=== PATIENT | female | born 1940 | race Caucasian/White ===

== ENCOUNTER 2020-12-29 14:10 | Outpatient (CLI) | payer MEDICARE, SELFPAY ==
--- NOTE | 2020-12-29 14:24 | MM_ITS ---
WS: [id number] BILATERAL DIGITAL SCREENING MAMMOGRAPHY WITH CAD CLINICAL INFORMATION: SCREENING HISTORY: Screening mammogram. No current complaints. COMPARISON: None. TECHNIQUE: Bilateral CC and MLO views. FINDINGS: Scattered fibroglandular densities bilaterally. A few incidental intramammary lymph nodes. Vascular c alcification. Indeterminate ovoid nodule inferior medial left breast measuring 11 mm with partially o bscured margins. Recommend left diagnostic mammography and ultrasound for further evaluation. Right breast is unremarkable. MM/[place] [id number] IMPRESSION: BI-RADS: 0-Incomplete: Need additional imaging evaluation FOLLOW UP: Need Additional Imaging Recommend left diagnostic mammography and ultrasound for further evaluation.
== END 2020-12-29 14:11 | disposition home or self-care (01) ==
LOC: RADSHAW 14:17
PROVIDERS: Family Provider Family Medicine; PCP Family Medicine; Visit Provider Family Medicine
DX: Z12.31 Encounter for screening mammogram for malignant neoplasm of breast (principal)
CPT/HCPCS: 77067

== ENCOUNTER 2021-01-25 09:36 | Outpatient (CLI) | payer MEDICARE, OTHER, SELFPAY ==
--- NOTE | 2021-01-25 09:41 | US_ITS ---
WS: [id number] LEFT DIGITAL DIAGNOSTIC MAMMOGRAM MAMMOGRAPHY WITH CAD CLINICAL INFORMATION: ABNORMAL MAMMOGRAM COMPARISON: December 29, 2020 TECHNIQUE: Left CC, MLO, and ML views. FINDINGS: Left breast composed of scattered fibroglandular densities. Stable 11 mm ovoid nodule inferior medial left breast is unchanged.. Ultrasound is pending. ULTRASOUND BREAST LEFT TECHNIQUE: Ultrasound left breast focused area of concern. CLINICAL INFORMATION: ABNORMAL MAMMOGRAM COMPARISON: None. FINDINGS: Ultrasound left breast at the 7:00 position. Solid hypoechoic well-circumscribed lesion at the 7:00 p osition 2 cm from the nipple with associated vascularity. This measures 1.0 x 0.8 x 0.9 CM and is non specific with a suspicious appearance. Recommend further evaluation with ultrasound-guided biopsy. US/US breast LT limited* [id number] IMPRESSION: BI-RADS: 4-Suspicious Finding-Biopsy Should Be Considered FOLLOW UP: US Guided Biopsy Recommended
== END 2021-01-25 09:37 | disposition home or self-care (01) ==
LOC: RADSHAW 09:39
PROVIDERS: Family Provider Family Medicine; PCP Family Medicine; Visit Provider Family Medicine
DX: R92.8 Other abnormal and inconclusive findings on diagnostic imaging of breast (principal); N63.24 Unspecified lump in the left breast, lower inner quadrant
CPT/HCPCS: 76642; 77065

== ENCOUNTER 2021-06-17 09:50 | Outpatient (CLI) | payer MEDICARE, OTHER, SELFPAY ==
--- NOTE | 2021-06-17 10:02 | XR_ITS ---
WS: [id number] Left shoulder, 4 views, 06/17/2021 Clinical Data: L SHOULDER PAIN Comparison: None. Findings: There is a fracture at the left humeral neck with slight impaction. There is displacement of the alana ral head inferiorly probably from blood. The clavicle, scapula and adjacent ribs are normal. XR/XR shoulder LT min 2V* [id number] Impression: 1. Fracture of the left humeral neck with impaction. 2. The doctor's office was notified at 1030 hours.
== END 2021-06-17 09:51 | disposition home or self-care (01) ==
PROVIDERS: PCP Family Medicine; Visit Provider Family Medicine
DX: S42.212A Unspecified displaced fracture of surgical neck of left humerus, initial encounter for closed fracture (principal); X58.XXXA Exposure to other specified factors, initial encounter
CPT/HCPCS: 73030

== ENCOUNTER 2023-04-14 09:47 | Emergency (ER) | payer MEDICARE, OTHER, SELFPAY ==
[2023-04-14 09:55] VITALS: BP 214/101; PULSE 73; RESP 18; TEMP 36.6; O2SAT 95
[2023-04-14 10:02] VITALS: BP 191/91; PULSE 76; RESP 18; O2SAT 96
--- NOTE | 2023-04-14 10:06 | ECG_ITS ---
[facility] Test Date: 2023-04-14 Pat Name: Santa Beard Department: Room: Gender: Female [employer]: : 1940 Requested By: Aziza Velazquez Order Number: [id number] Julia MD: Milind Sosa M.D. Measurements Intervals [place] Rate: 70 P: 118 MT: 239 QRS: 216 QRSD: 90 T: 166 QT: 406 QTc: 441 Interpretive Statements SINUS RHYTHM WITH FIRST DEGREE AV BLOCK WITH OCCASIONAL VENTRICULAR PREMATURE COMPLEXES ARM LEADS REVERSED [INVERTED P AND QRS IN I] No previous ECG available for comparison Electronically Signed On 04-15-2023 9:40:37 CDT by Milind Sosa M.D. [id number]
--- NOTE | 2023-04-14 10:07 | XR_ITS ---
WS: [id number] Portable AP upright chest, 04/14/2023 Clinical Data: elevated BP Comparison: None. Findings: No nodules, masses or effusions are seen. The heart is enlarged. The pulmonary vascularity is not increased. No pneumonia or pneumothorax is seen. The aortic arch and descending thoracic aorta show calcification and tortuosity. Monitor leads are on the chest wall. There is an old fracture of the left humeral head and neck. Impression: Cardiomegaly and atherosclerosis.
--- NOTE | 2023-04-14 10:09 | CT_ITS ---
WS: [id number] CT HEAD NONCONTRAST HISTORY: dizzy TECHNIQUE: Contiguous axial imaging performed through the brain in 2.5 mm imaging. Bone and soft tiss ue windows. Sagittal and coronal reformats reviewed. All CT scans at [facility] use at least one of these dose optimization techniques: automated exposure control; mA and/or kV adjustment per pa tient size (includes targeted exams where dose is matched to clinical indication); or iterative recon struction. DLP: 1031.68 mGy.cm COMPARISON: None available. No acute intracranial hemorrhage, midline shift or mass effect. Mild atrophy is symmetric. There is several lacunar infarcts within the basal ganglia noted bilateral ly. No large territory infarct. Ventricles: Normal size with no hydrocephalus. No inferior displacement of the cerebellar tonsils. Paranasal sinuses: As visualized are clear. Mastoid air cells: Well pneumatized. Calvarium and scalp: Skull is intact with no soft tissue edema or swelling. IMPRESSION: 1. No acute intracranial hemorrhage or edema. 2. Mild atrophy with several small bilateral lacunar infarcts in the basal ganglia.
--- NOTE | 2023-04-14 10:35 | ED_ITS ---
HPI - General Adult General: Chief complaint: General Medical Stated complaint: weakness Time Seen by Provider: 04/14/23 09:49 Source: patient Mode of arrival: ambulatory Limitations: no limitations History of Present Illness: Patient presents to the emergency department today for evaluation treatment of general ill feeling and weakness. Patient notes that for the last 3 days she has had increasing weakness. She reports a couple days ago having a large bout of vomiting and since then, has only had dry heaving. She did have some toast with butter this morning was able to tolerate it. She has been tolerating her fluids-per her report. She admits to abdominal pain only when she vomits. No diarrhea. Patient also indicates dizziness during this time. She states she has been told she has inner ear issues but feels this is somewhat different. She denies chest pains or shortness of breath. She denies any recent illness or fevers. She denies back pain or dysuria. Patient denies any significant past medical history. She states she has not been to a doctor in quite some time. She takes no chronic medications. Review of Systems General: Reports: 10 or more systems reviewed and unremarkable except in HPI and below Physical Exam Const: COMMON NORMALS: no acute distress, average body habitus, patient oriented x3, healthy appearing and alert HENMT: COMMON NORMALS: normocephalic, atraumatic, hearing grossly normal bilaterally, external ears normal, Normal nasal mucous membranes and turbinates present and moist oral mucous membranes HEAD & SCALP: normocephalic and atraumatic NOSE: Normal nasal mucous membranes and turbinates present EXTERNAL EAR: Yes external ears normal Neck/C-Spine: COMMON NORMALS: full ROM Resp: COMMON NORMALS: normal respiratory effort, No retractions, No use of accessory muscles and clear to auscultation bilaterally AUSCULTATION: clear to auscultation bilaterally Cardio: COMMON NORMALS: regular rate and regular rhythm RATE: regular rate RHYTHM: regular rhythm GI: COMMON NORMALS: Normal to inspection, nondistended, normoactive bowel sounds present, Soft to palpation and non-tender PALPATION: Yes Soft to p alpation : COMMON NORMALS: Yes no CVA tenderness BLADDER/KIDNEY EXAM: Yes no CVA tenderness Back/Pelvis: COMMON NORMALS: no CVA tenderness, no thoracic nor lumbar tenderness and thoraco-lumbar ROM normal Extremity: COMMON NORMALS: normal to inspection and full ROM Neuro: COMMON NORMALS: patient oriented x3 SENSORIUM/ORIENTATION: Yes alert Psych: COMMON NORMALS: mental status grossly normal, Normal thought process present, cooperative and speech normal SPEECH: Yes normal speech THOUGHT PROCESS: Normal thought process present Skin: NARRATIVE SKIN EXAM: Patient has no signs of pitting edema in the lower extremities bilaterally Course Vital Signs: Vital signs: Vital Signs Temperature 97.8 F 04/14/23 09:55 Pulse Rate 74 04/14/23 14:00 Respiratory Rate 16 04/14/23 14:00 Blood Pressure 184/89 04/14/23 14:00 Pulse Oximetry 98 04/14/23 13:22 Oxygen Delivery Me thod Room Air 04/14/23 13:22 MDM - General Adult Medical Decision Making Patient's lab work is generally unremarkable. She has no signs of an elevated white blood cell count or anemia. Kidney function is within normal limits. Chest x-ray indicated cardiomegaly without vascular congestion so we did add a BNP. Patient's baseline troponin was 17 but, had no significant changes at 2 hours. BNP is somewhat elevated at 632. Patient's blood pressure did fluctuate quite a bit here in the emergency department. Patient had systolic readings in the 150s up to 190s. I discussed the case at length with Dr. Gonzales and together decided a 3-day course of Lasix would be appropriate to treat not only blood pressure but, also help with the findings of slightly elevated BNP today. Patient was given a referral for follow-up with primary care to discuss new findings of elevated blood pressure readings and cardiomegaly. However, patient indicates she has a primary care she would like to see and family offered to try and see if they can get an appointment as well. Either way, patient needs follow-up and they understand. Patient was given strict return precautions for change in her condition including bilateral lower extremity edema, shortness of breath, nonproductive cough, or any chest pains. If these occur she needs to be seen and reevaluated here in the emergency department. We also went over blood pressure readings and how to make a log at home for her new primary care doctor to see. Differential Diagnosis DDX: Anemia, UTI, urosepsis, pneumonia, vertigo, stroke, dehydration Lab Data 04/14/23 10:14 04/14/23 10:14 Laboratory Results WBC 5.90 10^3/uL (3.29-11.43) 04/14/23 10:14 RBC 4.89 10^6/uL (3.85-5.65) 04/14/23 10:14 Hgb 14.30 g/dL (11.27-16.99) 04/14/23 10:14 Hct 44.8 % (36-47) 04/14/23 10:14 MCV 91.6 fl (85-98) 04/14/23 10:14 MCH 29.2 pg (27-33) 04/14/23 10:14 MCHC 31.9 g/dL (30-55) 04/14/23 10:14 RDW 13.2 % (12.1-15.1) 04/14/23 10:14 Plt Count 258 10^3/cmm (157-399) 04/14/23 10:14 MPV 10.2 fL (7.4-10.4) 04/14/23 10:14 Neut % (Auto) 66.6 % 04/14/23 10:14 Lymph % (Auto) 22.2 % 04/14/23 10:14 [place] % (Auto) 7.6 % 04/14/23 10:14 Eos % (Auto) 3.1 % 04/14/23 10:14 Baso % (Auto) 0.2 % 04/14/23 10:14 Neut # (Auto) 3.93 10^3/uL (1.8-7.7) 04/14/23 10:14 Lymph # (Auto) 1.3 10^3/uL (0.8-4.8) 04/14/23 10:14 [place] # (Auto) 0.5 10^3/uL (0.2-0.9) 04/14/23 10:14 Eos # (Auto) 0.2 10^3/uL (0.0-0.8) 04/14/23 10:14 Baso # (Auto) 0.0 10^3/uL (0.0-0.1) 04/14/23 10:14 Nucleated RBC % (auto) 0 % 04/14/23 10:14 Nucleated RBCs # 0.0 /100WBC 04/14/23 10:14 Sodium 139 mmol/L (136-145) 04/14/23 10:14 Potassium 4.2 mmol/L (3.5-5.1) 04/14/23 10:14 Chloride 103 mmol/L (98-107) 04/14/23 10:14 Carbon Dioxide 27 mmol/L (22-29) 04/14/23 10:14 Anion Gap 13.2 (5-19) 04/14/23 10:14 BUN 14 mg/dL (8-23) 04/14/23 10:14 Creatinine 0.8 mg/dL (0.5-0.9) 04/14/23 10:14 GFR Calculation Not Reportable 04/14/23 10:14 Glucose 101 mg/dL (65-115) 04/14/23 10:14 Calculated Osmolality 289 mOsm/kg (285-295) 04/14/23 10:14 Calcium 9.6 mg/dL (8.5-10.5) 04/14/23 10:14 Total Bilirubin 0.4 mg/dL (0.15-1.2) 04/14/23 10:14 AST 15 U/L (0-32) 04/14/23 10:14 ALT 10 U/L (0-33) 04/14/23 10:14 Alkaline Phosphatase 68 U/L (35-105) 04/14/23 10:14 Troponin T Baseline 17 ng/L (0-10) H 04/14/23 10:14 Troponin T 120 Minute 16.60 ng/L (0-10) H 04/14/23 12:01 Delta Troponin T -0.40 ABS# (0-10) L 04/14/23 12:01 NT-Pro-B Natriuret Pep 632 pg/mL (0-450) H 04/14/23 10:14 Total Protein 7.7 g/dL (6.6-8.7) 04/14/23 10:14 Albumin 4.1 g/dL (3.5-5.2) 04/14/23 10:14 Globulin 3.6 g/dL (1.3-4.6) 04/14/23 10:14 Urine Color Yellow (Yellow) 04/14/23 11:07 Urine Appearance Clear (CLEAR) 04/14/23 11:07 Urine pH 5 (5-7) 04/14/23 11:07 Ur Specific [place] 1.015 (1.005-1.030) 04/14/23 11:07 Urine Protein Neg (Negative) 04/14/23 11:07 Urine Glucose (UA) Norm (Normal) 04/14/23 11:07 Urine Ketones Negative (Negative) 04/14/23 11:07 Urine Blood Neg (Negative) 04/14/23 11:07 Urine Nitrate Negative (Negative) 04/14/23 11:07 Urine Bilirubin Neg (Negative) 04/14/23 11:07 Urine Urobilinogen Norm mg/dL (Negative) 04/14/23 11:07 Ur Leukocyte Esterase 1+ (Negative) H 04/14/23 11:07 Urine RBC 0-4 /hpf (0-2) H 04/14/23 11:07 Urine WBC 0-4 /hpf (0-5) H 04/14/23 11:07 Ur Squamous Epith Cells 0-4 /hpf (0-5) H 04/14/23 11:07 Amorphous Sediment Not Reportable 04/14/23 11:07 Urine Bacteria Trace /hpf (NONE) 04/14/23 11:07 SARS-CoV-2 Ag (Rapid) negative (Negative) 04/14/23 10:15 All radiology interpretation(s) finalized by discharge Discharge Plan Discharge Patient Disposition: Home Clinical Impression: Elevated BP without diagnosis of hypertension, Cardiomegaly, Elevated brain natriuretic peptide (BNP) level Condition: Stable Prescriptions: New Lasix 40 mg tablet 40 mg PO DAILY Qty: 3 0RF No Action PreserVision AREDS-2 250-90-40-1 mg Capsule 1 tab PO BID Discharge Orders: Discharge ED (Routine); Ordered 04/14/23 Ordered By: Aziza Obrien Referrals: Jerry Olson DO [Primary Care Provider] - Discharge Diet: Diabetic and Low Salt Discharge Activity: Increase activity as tolerated Patient Instructions: Heart Failure (ED), Heart Healthy Diet (ED), How to Take a Blood Pressure Reading (ED), DASH Eating Plan (ED), Low-Sodium Diet (ED), Hypertension and Diabetes (ED) Activity Restrictions/Additional Instructions: Lab work today shows no signs of infection, kidney failure, elevated blood sugars, or anemia. Urinalysis shows no signs of infection or concerns for ketones from excessive glucose. Your chest x-ray did show an enlarged heart though there is no vascular congestion concerning for severe CHF exacerbation. However, your BNP-the lab we checked to evaluate for the severity of heart strain is mildly elevated, but appears to be stable. We are giving you a 3-day course of Lasix. This medication helps remove excess fluid out of the body which will also help with your blood pressure. We would like you to check your blood pressure at least 3 times a day. I have given you some information about how to take an accurate blood pressure reading in your discharge packet for you to have at home. I have also requested a follow-up appointment with a primary care doctor as it is very important that you get into soon as possible for reevaluation as you may require continued daily treatment for blood pressure issues. If you develop any slurred speech, facial droop, one-sided body weakness, severe headache, chest pains, lower leg swelling or any shortness of breath you need to be seen and reevaluated back here in the emergency department. Coding Level of Care Code ED [employer] for Chiki Aquino
[2023-04-14 10:36] LABS: Basophils % 0.2 %; Eosinophils # 0.2 10^3/uL (0.0-0.8); Eosinophils % 3.1 %; Hematocrit 44.8 % (36-47); Lymphocytes # 1.3 10^3/uL (0.8-4.8); Lymphocytes % 22.2 %; Mean Corpuscular HGB Conc 31.9 g/dL (30-55); Mean Corpuscular Hemoglobin 29.2 pg (27-33); Mean Corpuscular Volume 91.6 fl (85-98); Mean Platelet Volume 10.2 fL (7.4-10.4); Monocytes # 0.5 10^3/uL (0.2-0.9); Monocytes % 7.6 %; Neutrophils # 3.93 10^3/uL (1.8-7.7); Neutrophils % 66.6 %; Nucleated Red Blood Cells % 0 %; Platelet Count 258 10^3/cmm (157-399); Red Blood Count 4.89 10^6/uL (3.85-5.65); Red Cell Distribution Width 13.2 % (12.1-15.1)
[2023-04-14 10:42] LABS: Troponin(5th) Baseline 17 ng/L (0-10)
[2023-04-14 10:46] LABS: Alanine Aminotransferase 10 U/L (0-33); Albumin Level 4.1 g/dL (3.5-5.2); Alkaline Phosphatase 68 U/L (35-105); Anion Gap 13.2 (5-19); Aspartate Amino Transferase 15 U/L (0-32); Blood Urea Nitrogen 14 mg/dL (8-23); Calcium 9.6 mg/dL (8.5-10.5); Carbon Dioxide 27 mmol/L (22-29); Chloride 103 mmol/L (98-107); Globulin 3.6 g/dL (1.3-4.6); Glucose 101 mg/dL (65-115); Osmolality Calculated 289 mOsm/kg (285-295); Potassium 4.2 mmol/L (3.5-5.1); Sodium 139 mmol/L (136-145); Total Bilirubin 0.4 mg/dL (0.15-1.2); Total Protein 7.7 g/dL (6.6-8.7)
[2023-04-14 10:46] LABS: SARS Covid-2 Antigen negative (Negative)
[2023-04-14 11:07] LABS: NT Pro B Type Natriuretic Pept 632 pg/mL (0-450)
[2023-04-14 11:23] LABS: Add Urine Microscopic? YES; Bilirubin Urine Neg (Negative); Blood Urine Neg (Negative); Glucose Urine UA Norm (Normal); Ketones Urine Negative (Negative); Leukocyte Esterase Urine 1+ (Negative); Nitrate Urine Negative (Negative); Protein Urine Neg (Negative); RBC Urine 0-4 /hpf (0-2); Specific Gravity, Urine 1.015 (1.005-1.030); Squamous Epithelial Cell Urine 0-4 /hpf (0-5); Urine Appearance Clear (CLEAR); Urine Color Yellow (Yellow); Urobilinogen Urine Norm (Negative); WBC Urine 0-4 /hpf (0-5); pH Urine 5 (5-7)
[2023-04-14 11:24] LABS: Add Urine Culture? No; Bacteria Urine TRACE /hpf
[2023-04-14 13:22] VITALS: BP 194/105; PULSE 67; RESP 16; O2SAT 97; O2SAT 98
[2023-04-14 14:00] VITALS: BP 184/89; PULSE 74; RESP 16
--- NOTE | 2023-04-16 16:49 | PC.SOCIAL ---
PCP appt Contacted patient to assist in establishing PCP. She reports that she has an appt scheduled with Dr. Singer on Monday.
== END 2023-04-14 14:05 | disposition home or self-care (01) ==
PROVIDERS: Emergency Provider Physician Assistant; PCP Family Medicine
DX: R03.0 Elevated blood-pressure reading, without diagnosis of hypertension (principal); I51.7 Cardiomegaly; R79.89 Other specified abnormal findings of blood chemistry; Z20.822 Contact with and (suspected) exposure to COVID-19
CPT/HCPCS: 36415; 70450; 71045; 80053; 81001; 83880; 84484; 85025; 87426; 93005; 99285

== ENCOUNTER → 2024-08-12 11:23 | Outpatient (BNVA) | payer MEDICARE, SELFPAY | PROVIDERS: PCP Family Medicine; Visit Provider Family Medicine | DX: I10 Essential (primary) hypertension (principal); R73.03 Prediabetes; I51.7 Cardiomegaly | CPT/HCPCS: 80053; 80061; 83036; 84439; 84443; 85025 ==

== ENCOUNTER 2025-05-30 13:07 | Emergency (ER) | payer MEDICARE, SELFPAY ==
[2025-05-30 13:02] VITALS: BP 180/85; PULSE 88; RESP 17; TEMP 36.9; O2SAT 97; BMI 25.8
--- NOTE | 2025-05-30 13:20 | CT_ITS ---
WS: [id number] CT CHEST, ABDOMEN AND PELVIS WITH CONTRAST HISTORY: trauma TECHNIQUE: Contiguous 5 mm axial imaging performed through the chest, abdomen and pelvis with IV contrast, oral contrast has not been provided. Coronal and sagittal reformats chest. Coronal and sagittal reformats through the abdomen and pelvis. All CT scans at [facility] use at least one of these dose optimization techniques: automated exposure control; mA and/or kV adjustment per patient size (includes targeted exams where dose is matched to clinical indication); or iterative reconstruction. CONTRAST: Omnipaque 350; 100 mL IV. DLP: 1140.37 mGy.cm COMPARISON: 08/28/[address]: Lungs are mildly hyperinflated. No pulmonary contusion or laceration. No pneumothorax. Numerous scattered subcentimeter nodules. These nodules are calcified. No pleural effusion or pericardial effusions. Heart size is normal. There is advanced atherosclerotic disease within the aorta. There is calcified and noncalcified plaque. Ascending aorta is normal caliber. Plaque and ulcerated plaque in the descending aorta. There is no periaortic hematoma. All of these findings are probably chronic. No mediastinal or hilar adenopathy. Remote fracture LEFT humeral neck. No acute rib fractures or thoracic spine fracture identified. Abdomen CT: Liver and spleen are intact. No lacerations or hematomas. Prior cholecystectomy. Normal pancreas and adrenal glands. No renal obstruction. Extensive atherosclerotic plaque continues into the abdominal aorta. Irregular soft plaque in peripheral calcified plaque. Some of the soft plaque is ul cerated. These are not acute findings. There is mild ectasia infrarenal aorta. Extensive calcification continues into the iliac and femoral arteries. No GI tract obstruction. No colitis or mesenteric injury or ischemia. Normal appendix. Increasing diverticular burden in the descending colon. No evidence for acute diverticulitis. No adenopathy or ascites. Pelvic CT: No free fluid. Urinary bladder is normally distended. Atrophic uterus. No soft tissue hematomas or contusion. Degenerative disc space narrowing in the lumbar spine with endplate osteophytes. No lumbar spine fracture is identified. There is a small amount of air projecting into the subarachnoid space at L4 which is probably degenerative air within the disc. Moderate degenerative changes at the hip joints. No acute fracture. CT/CT chest abdpel w/*[id number] IMPRESSION: 1. No pneumothorax or pulmonary contusion/laceration. 2. Advanced atherosclerotic disease within the thoracic aorta or abdomen aorta . There is calcified plaque and additional ulcerated and noncalcified plaque. 3. No visceral organ injury. 4. No mesenteric injury or hematoma. 5. No thoracic or lumbar spine fracture identified. 6. No pelvic fracture.
--- NOTE | 2025-05-30 13:20 | CT_ITS ---
WS: [id number] CT HEAD NONCONTRAST HISTORY: trauma TECHNIQUE: Contiguous axial imaging performed through the brain. Bone and soft tissue windows. Sagittal and coronal reformats reviewed. All CT scans at [facility] use at least one of these dose optimization techniques: automated exposure control; mA and/or kV adjustment per patient size (includes targeted exams where dose is matched to clinical indication); or iterative reconstruction. DLP: 1398.39 mGy.cm COMPARISON: 04/14/2023 No acute intracranial hemorrhage, midline shift or mass effect. Mild symmetric atrophy and moderate small vessel changes. Ventricles: Normal size with no hydrocephalus. No inferior displacement of the cerebellar tonsils. Paranasal sinuses: As visualized are clear. Mastoid air cells: Well pneumatized. Calvarium and scalp: No skull fracture Large acute scalp hematoma with laceration centered over the high RIGHT parietal bone. CT/CT head wo con* [id number] IMPRESSION: 1. No acute intracranial hemorrhage or edema. 2. Acute high RIGHT parietal scalp hematoma with laceration. 3. Mild symmetric cerebral and cerebellar atrophy and moderate small vessel ch anges.
--- NOTE | 2025-05-30 13:20 | CT_ITS ---
WS: [id number] CT CERVICAL SPINE HISTORY: trauma TECHNIQUE: Contiguous 2.0 mm axial imaging performed through the entire cervical spine. Sagittal and coronal reformats also performed. All CT scans at [facility] use at least one of these dose optimization techniques: automated exposure control; mA and/or kV adjustment per patient size (includes targeted exams where dose is matched to clinical indication); or iterative reconstruction. DLP: 1398.39 mGy.cm COMPARISON: None available. Straightening of the normal cervical lordosis. Normal alignment otherwise. Facet joints are narrowed but normally aligned. Lateral masses of C1 and C2 are aligned. The odontoid is intact. Advanced facet joint arthropathy with multilevel foraminal stenosis. No acute fractures are identified. Moderate ce ntral and severe bilateral foraminal stenosis at C6-7. Severe foraminal stenosis at C3-4, C4-5 and C5-6. Paraspinal soft tissues are negative for acute hematoma. Scattered calcifications in the carotid arteries. Lung apices are clear. CT/CT cervical spin wo con* [id number] IMPRESSION: 1. No acute cervical spine fractures. 2. Facet joints are normally aligned. 3. Multilevel facet joint arthropathy and foraminal stenosis.
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
[2025-05-30] MEDS: iohexol 350 mg/mL 500 mL Btl (per mL) IV (14:26)
[2025-05-30 15:01] LABS: Hematocrit 43.2 % (36-47); Hemoglobin 13.70 g/dL (11.27-16.99); Mean Corpuscular HGB Conc 31.7 g/dL (30-55); Mean Corpuscular Hemoglobin 29.7 pg (27-33); Mean Corpuscular Volume 93.5 fl (85-98); Nucleated Red Blood Cells % 0 %; Platelet Count 236 10^3/cmm (157-399); Red Blood Count 4.62 10^6/uL (3.85-5.65); White Blood Count 8.54 10^3/uL (3.29-11.43)
[2025-05-30] MEDS: tetanus-dipt-pertussis 0.5 mL SDV IM (15:11)
[2025-05-30] MEDS: lidocaine-epi 1% 20 mL INJ INJECTION (15:13)
[2025-05-30] MEDS: HYDROcodone-acetaminophen 5-325 mg Tablet 1 TAB PO (15:31)
[2025-05-30 15:39] LABS: Alanine Aminotransferase 12 U/L (0-33); Albumin Level 3.8 g/dL (3.5-5.2); Alkaline Phosphatase 71 U/L (35-105); Anion Gap 17.0 (5-19); Aspartate Amino Transferase 16 U/L (0-32); Blood Urea Nitrogen 18 mg/dL (8-23); Calcium 9.0 mg/dL (8.5-10.5); Carbon Dioxide 22 mmol/L (22-29); Chloride 100 mmol/L (98-107); Globulin 3.9 g/dL (1.3-4.6); Glucose 93 mg/dL (65-115); Osmolality Calculated 282 mOsm/kg (285-295); Potassium 4.0 mmol/L (3.5-5.1); Sodium 135 mmol/L (136-145); Total Protein 7.7 g/dL (6.6-8.7)
[2025-05-30 15:50] VITALS: BP 189/93; PULSE 90; RESP 16; O2SAT 97
== END 2025-05-30 15:43 | disposition home or self-care (01) ==
PROVIDERS: Emergency Provider Family Medicine; PCP Family Medicine
DX: S01.01XA Laceration without foreign body of scalp, initial encounter (principal); S09.8XXA Other specified injuries of head, initial encounter; M54.9 Dorsalgia, unspecified; Z87.891 Personal history of nicotine dependence; I10 Essential (primary) hypertension; V03.90XA Pedestrian on foot injured in collision with car, pick-up truck or van, unspecified whether traffic or nontraffic accident, initial encounter
CPT/HCPCS: 36415; 70450; 71260; 72125; 74177; 80053; 85025; 90471; 90715; 99285; 99291; J9999

== ENCOUNTER 2025-06-09 12:04 | Emergency (ER) | payer MEDICARE, SELFPAY ==
--- NOTE | 2025-06-09 12:05 | CTR_ITS ---
PROCEDURE INFORMATION: Exam: CT Head Without Contrast Exam date and time: 06/09/2025 12:53 PM Age: 84 years old Clinical indication: Injury or trauma; Fall; Additional info: Head injury TECHNIQUE: Imaging protocol: Computed tomography of the head without contrast. Radiation optimization: All CT scans at this facility use at least one of these dose optimization techniques: automated exposure control; mA and/or kV adjustment per patient size (includes targeted exams where dose is matched to clinical indication); or iterative reconstruction. COMPARISON: CT head wo con* [id number] 05/30/2025 2:09 PM RADIATION DOSE METRICS: Total DLP (mGy-cm): 1008.2 FINDINGS: Brain: No acute intracranial hemorrhage or mass effect. Mild nonspecific supratentorial white matter hypoattenuation is seen, most likely chronic microangiopathic changes. 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 Cerebral ventricles: Within normal limits for age. Paranasal sinuses: Visualized sinuses are unremarkable. Mastoid air cells: Visualized mastoid air cells are well aerated. Bones: Unremarkable. Soft tissues: Within normal limits. CT/CT head wo con* [id number] IMPRESSION: No acute intracranial hemorrhage or mass effect.
[2025-06-09 12:09] VITALS: BP 143/83; PULSE 71; RESP 17; TEMP 36.4; O2SAT 98; BMI 20.9
--- OUTSIDE RECORDS SUMMARY | 2025-06-09 12:38 | XMS_ITS | Clinical Summary ---
Author Organization [facility] Address [address] [place] [address] Care Team Providers Care Wardrobe Manager Name Role Phone Unavailable Primary Care Provider Unavailabl e Allergies Active Allergy Reactions Criticality Noted Date Comments Penicillins Hallucination Low 06/01/2018 Medications DUREZOL 0.05 % solution 05/29/2018 Active Active Problems No known active problems Family History Medical History Relation Name Comments Diabetes Mother Cancer Sister Relation Name Status Comments Mother Sister Social History Tobacco Use Types Packs/Day Years Used Date Smoking Tobacco: Never Smokeless Tobacco: Never Alcohol Use Standard Drinks/Week Comments No 0 (1 standard drink = 0.6 oz pur e alcohol) Comments Unknown Sex and Gender Information Value Date Recorded Sex Assigned at Not on file Legal 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
--- OUTSIDE RECORDS SUMMARY | 2025-06-09 12:38 | XMS_ITS | Clinical Summary ---
Author Organization [facility] Address [address] [place]: Epic Prelude ADT [place] [address] Care Team Providers Care Case Advocate Name Role Phone Mike Singer MD Primary Care Provider + Allergies Active Allergy Reactions Criticality Noted Date Comments Penicillins Hallucination Low 06/01/2018 Medications difluprednate (DurezoL) 0.05 % solution 05/29/2018 Active lisinopril-hydro CHLOROthiazide (ZESTORETIC) 10-12.5 mg tablet Take 1 Tablet by mouth daily. 04/19/2023 Active vits A,C,E/zinc/coppe r (VISION-CRISTIANA PRESERVE ORAL) Take by mouth. 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 Gender Identity Not on file Sexual Orientation Not on file Last Filed Vital Signs Vital Sign Reading Time Taken Comments Blood Pressure 134/70 06/01/2023 10:16 AM ENVELOPE CUTTER Pulse 80 06/01/2023 10:16 AM ENVELOPE CUTTER Temperature - - Respiratory Rate - - Oxygen Saturation - - Inhaled Oxygen Concentration - - Weight 83.2 kg (183 lb 6.4 oz) 06/01/2023 10:16 AM ENVELOPE CUTTER Height - - Body Mass Index - - Plan of Treatment Health Maintenance Due Date Last Done Comments DTAP/TDAP/TD VACCINES (1 - Tdap) 1960 PNEUMOCOCCAL VACCINE 50+ YEARS (1 of 1 - PCV) 06/12/19 ZOSTER VACCINE (1 of 2) 1991 OSTEOPOROSIS SCREENING 2006 RSV VACCINE (60+ or ) (1 - 1-dose 75+ series) 2016 INFLUENZA VACCINE (#1) 2025 Insurance [id number] [place] [id number] BCBS MEDICARE HMO Care Teams Case Advocate Relationship Specialty Start Date End Date Mike Singer MD [address] [id number] PCP - General Family Practice 07/28/23
--- OUTSIDE RECORDS SUMMARY | 2025-06-09 12:38 | XMS_ITS | Data Portability ---
Author Organization HAROON Nain Schmitt [facility] Jnonathan To [facility] Address [address] [address] Assessment Encounter Date Assessment Date Assessment LastModified by Organization Details LastModified Time 01/11/2023 01/11/2023 No acute sx of pyelonephritis. Take medication as prescribed. Limit caffeine, sugary drinks and other bladder irritants. Increase fluids. We will call with culture results. Instructed to follow up promptly for any sx of fever, worsening of pain/no improvement, nausea or vomiting. F/U PRN in walk-in for sx that do not continue to improve or worsen. Patient verbalizes understanding and agreement with this plan of care. Will call with any questions or concerns. [email or web address] Not available 01/11/2023 12:03:01 Plan of Treatment Reminders Order Date Submit Date Provider Last Modified By Organization Details Last Modified Time Details Appointments None recorded. Lab urinalysis , complete 2022 023 [facility] ([facility]), [address] [place], [address], 3 11:47:01 culture, urine 2022 023 LITTLE YORK [employer] [facility], [address] [facility] [address], [facility] [address] [place], [address], 3 02:49:14 Referral None recorded. Procedures None recorded. Surgeries None recorded. Imaging None recorded. Medication Orders Macrobid 100 mg capsule 2022 023 [facility]/Pharmacy #[id number], [address] [facility] [address], [place], [address], 3 12:01:22 Pyridium 200 mg tablet 2022 023 [id number], [address], [place], [address], 3 12:01:20 nystatin 100,000 unit/gram topical cream 2022 023 [id number], [address], [place], [address], 12:01:21 Patient TargetsNo targets recorded. Patient InstructionsNo instructions recorded. Reason for Referral None Reported. Results Created Date Observation Date Name Description Value Unit Range Abnormal Flag Note LastModifiedBy Organization Detail LastModifiedTime 01/12/2001/11/2023 urina lysis , compl ete color yellow Not Available [facility] ([facility]) [address] [place], [address], 01/11/2023 11:40:39 01/12/2001/11/2023 urina lysis , compl ete clarity cloudy clear Not Available [facility] ([facility]) [address] [place], [address], 01/11/2023 11:40:39 01/12/20 23 01/11/2023 urina lysis , compl ete glucose negati ve negati ve Not Available [facility] ([facility]) [address] [place], [address], 01/11/2023 11:40:39 01/12/20 23 01/11/2023 urina lysis , compl ete bilirubin 1+ negati ve Not Available [facility] ([facility]) [address] [place], [address], 01/11/2023 11:40:39 01/12/20 23 01/11/2023 urina lysis , compl ete ketones trace negati ve Not Available [facility] ([facility]) [address] [place], [address], 01/11/2023 11:40:39 01/12/20 23 01/11/2023 urina lysis , compl ete specific gravity 1.030 1.005- 1.025 Not Available [facility] ([facility]) [address] [place], [address], 01/11/2023 11:40:39 01/12/20 23 01/11/2023 urina lysis , compl ete pH 5.5 5.0-7. 0 Not Available [facility] ([facility]) [address] [place], [address], 01/11/2023 11:40:39 01/12/20 23 01/11/2023 urina lysis , compl ete protein positi ve Not Available [facility] ([facility]) [address] [place], [address], 01/11/2023 11:40:39 01/12/20 23 01/11/2023 urina lysis , compl ete uro 1.0 Not Available [facility] ([facility]) [address] [place], [address], 01/11/2023 11:40:39 01/12/20 23 01/11/2023 urina lysis , compl ete nitrate negati ve negati ve Not Available [facility] ([facility]) [address] [place], [address], 01/11/2023 11:40:39 01/12/20 23 01/11/2023 urina lysis , compl ete blood 3+ negati ve Not Available [facility] ([facility]) [address] [place], [address], 01/11/2023 11:40:39 01/12/20 23 01/11/2023 urina lysis , compl ete leukocytes 2+ negati ve Not Available [facility] ([facility]) [address] [place], [address], 01/11/2023 11:40:39 01/12/20 23 01/11/2023 urina lysis , compl ete WBC >100 packed 0 Not Available [facility] ([facility]) [address] [place], [address], 01/11/2023 11:40:39 01/12/20 23 01/11/2023 urina lysis , compl ete RBC >100 packed 0 Not Available [facility] ([facility]) [address] [place], [address], 01/11/2023 11:40:39 01/12/20 23 01/11/2023 urina lysis , compl ete epi cells - 0 Not Available [facility] ([facility]) [address] [place], [address], 01/11/2023 11:40:39 01/12/20 23 01/11/2023 urina lysis , compl ete bacteria - Not Available [facility] ([facility]) [address] [place], [address], 01/11/2023 11:40:39 01/12/20 23 01/11/2023 urina lysis , compl ete other - Not Available [facility] ([facility]) [address] [place], [address], 01/11/2023 11:40:39 01/13/20 23 01/15/2023 CULTU RE, URINE , ROUTI NE culture, urine, routine SEE NOTE abnormal CULTU RE, URINE , ROUTI NE Micro Numbe r: [id number] Test Statu s: Final Speci men Sourc e: Urine Speci men Quali ty: Adequ ate Resul t: 10,00 0-49, 000 CFU/m L of Esche kimberly a coli COMME NT: Addit ional non-p redom inati ng organ ism(s ) isola ian. These organ isms, commo nly found on exter nal and inter nal genit janina, are consi dered colon izers . No furth er testi ng perfo rmed. E.col i ----- ----- ----- - INT KARTHIK AMOX/ CLAVU LANAT E S <=2 AMP/S ULBAC PHILIP S <=2 CEFAZ TUCKER NR <=4 2 CEFEP JOSE ANGEL S <=0.1 2 CEFTA ZIDIM E S <=1 CEFTR IAXON E S <=0.2 5 CIPRO FLOXA JAMES S <=0.0 6 GENTA MICIN S <=1 IMIPE NEM S <=0.2 5 LEVOF LOXAC IN S <=0.1 2 MEROP ENEM S <=0.2 5 NITRO FURAN TOIN S 32 PIP/T AZOBA CTAM S <=4 TRIME THOPR IM/ROMERO LFA S <=20 S=Starla cepti ble I=Int ermed iate R=Res istan t * = Not Teste d NR = Not Repor ian NN = See Thera py Comme nts THERA PY COMME NTS Note 1: For infec tions other than uncom plica ian UTI cause d by E. coli, K. pneum oniae or P. mirab ilis: Cefaz tucker is resis tant if KARTHIK > or = 8 mcg/m L. (Dist ingui shing susce ptibl e versu s inter media te for isola tyler with KARTHIK < or = 4 mcg/m L requi res addit ional testi ng.) Note 2: For uncom plica ian UTI cause d by E. coli, K. pneum oniae or P. mirab ilis: Cefaz tucker is susce ptibl e if KARTHIK <32 mcg/m L and predi cts susce ptibl e to the oral agent s cefac skip, cefdi arabella, cefpo doxim e, cefpr ozil, cefur oxime , cepha lexin and lorac arbef . Not Available [employer] [facility] [address] [place], [address], 01/15/2023 07:22:32 Result Notes None recorded. Problems Name Problem SNOMED Code Status Onset Date Resolution Date Notes Provider Name and Address Organization Details Recorded Time Cholecys tectomy planned 039706931 Completed 201603/06/2017 Cholecys tectomy - Status is Inactive ; 03/06/20 17 8:26AM by Shaylee Pérez CMT, Annotati on/Adden dum; Promoted ; acuity set as *; Not Available Replaced by [facility] 3 03:16:47 Problem Notes None recorded. Medical Equipment None Reported. Allergies Allergen ID Allergen Name Allergen Category Reaction Reaction Severity Criticality Documentation Date Start Date Code Code System Note Provider Name and Address Organization Details Recorded Time 90332 penicilli n V potassium medicatio n Not available Not available Not available 02/11/202365515 5 RxNorm Comme nt: Recor ded 07/01 1:14P M by Garrett Rivas, Offic e Visit ; Neena sosa; Rodger polanco ce: *; Reaso n: Drug aller gy; ; Not Available Replaced by [facility] 3 02:23:29 Medications Name Sig Start Date Stop Date Status Note LastModified by Organization Details LastModified Time Pyridium 200 mg tablet Take 1 tablet 3 times a day by oral route as needed for 2 days. 2022 active Not Available Not Available Not Avai lable triamcinol one acetonide 0.1 % topical cream two times daily 2021 active Recorded 2 1:30PM by Danita Cooper PA-C, Office Visit; Refill Quantity: 0; Not Available Not Available Not Available Macrobid 100 mg capsule Take 1 capsule every 12 hours by oral route for 7 days. 2022 active Not Available Not Available Not Avai lable nystatin 100,000 unit/gram topical cream APPLY TO THE AFFECTED AREA(S) BY TOPICAL ROUTE 2 TIMES PER DAY 2022 active Not Available Not Available Not Avai lable acyclovir three times daily 12/16/ 2022 active Recorded 2 1:30PM by Danita Cooper PA-C, Office Visit; Refill Quantity: 0; Not Available Not Available Not Available Diflucan one time dose 2016 active may repeat in one week if not well; Recorded 2 1:14PM by Jose Rivas, Office Visit; Refill Quantity: 1; Tablet; Not Available Not Available Not Available Monistat 1 (tioconazo le) 2 times per day 2016 active Recorded 2 1:14PM by Jose Rivas, Office Visit; Refill Quantity: 1; Each; Not Available Not Available Not Available Vitals Date Recorded Body height Body mass index (BMI) Body weight Oxygen saturation Heart rate Respiratory rate Body temperature Systolic And Diastolic Provider Name and Address Organization Details Last Updated DateTime 3 168.91 cm 29.6 kg/m2 70644.1 8 g 97 % 86 /min 20 /min 98 [degF] 132/86 mm[Hg] [facility] 3 11:46:32 Date Recorded Systolic And Diastolic Provider Name and Address Organization Details Last Updated DateTime 04/14/2023 190/100 mm[Hg] AISHA PRIETO [address] [place] [address], [address], [facility] 04/14/2023 10:40:39 Date Recorded Body height Body mass index (BMI) Body weight Oxygen saturation Heart rate Respiratory rate Body temperature Provider Name and Address Organization Details Last Updated DateTime 3 168.91 cm 29.1 kg/m2 90841.4 g 96 % 62 /min 20 /min 97.5 [degF] [facility] 3 10:14:29 Social History None recorded. Functional Status None recorded. Mental Status None recorded. Family History Nothing Reported Notes:Ovarian Cancer; Sister Medical History No medical history recorded. Gynecological HistoryNo gynecological history recorded. Obstetrics History GPAL:G 0 P 0 0 0 0 Past Encounters Encounter ID Performer Location Encounter Start Date Encounter Closed Date Diagnosis/Indication Diagnosis SNOMED-CT Code Diagnosis ICD10 Code Diagnosis IMO Codes Diagnosis Note [id number] VENUS TORRES [facility] ([facility]) [address] [place] [address] 01/11/2023 11:20:21 01/11/2023 12:08:46 Dysuria 28005804 R30.0 Acute cystitis 05914810 N30.01 Pruritus of vulva 907889 00 L29.2 [id number] CHRISTOPHERVENUS SANTOS-C [facility] ([facility]) [address] [place] [address] 04/14/2023 10:01:43 04/14/2023 12:55:44 Dizziness 529564108 R42 Due to severity of dizziness, visual changes, elevated blood pressure, and nausea/vom iting, patient was referred to ED for further evaluation . Patient agreeable to go to ED. Patient did have a family member with her who drove her to ED via private vehicle. Report was called to [facility] ED from SHANE Campa to HSANE Artis at [facility] ED. Health Concerns Section Related Observation LastModified by Organization Detai ls LastModified Time None Recorded Concern Status LastModified by Organization Details LastModified Time None Recorded Advance Directives Directive None Recorded Payers Insurance Date Sequence Insurance Name Policy Number Policy Almodovar Covered Member ID Almodovar Member ID Guarantor Name 04/24/2023 1 [id number]/ [place]ANTAGE - PPO) [id number] [place] [id number] [place]ard 01/11/2023 2 [facility] (MEDICARE SUPPLEMENT) Santa Beard [id number] Santa [place]ard Notes Date Note Type Note Provider Name and Address Organization Details Recorded Time 3 text/html Lower Urinary Tract Symptoms (LUTS)Reported by PatientHPIFor context, patient reportsabnormal voiding frequency. For associated symptoms, patient reportsurgency,frequency ,dysuria,nocturia __ times a night, andvaginal itching or burning. For location, patient reportsbladder. For quality, patient reportsachingandpressure . For severity, patient reportsworsening. For duration, patient reports< 1 week (2-3 days).ROS as noted in the HPI CRAIG MERCADOEYVENUS [address] [place], [address], [facility], Eric. 01/11/2023 12:05:28 3 text/html DizzinessReported by PatientHPIFor severity, patient reportssome effect on daily activities. For associated symptoms, patient reportsvision changes. For duration, patient reportsintermittent episodes lasting:. For aggravating factors, patient reportsrapid movements,moving head,moving eyes, andpositional change.ROS as noted in the HPI PATIENT REPORTS SHE HAS HAD WORSENING SYMPTOMS FOR 3-4 DAYS. HER BP IS ELEVATED BUT NO HEADACHE.STATES SHE FEELS HER STOMACH FLIP FLOPS WHEN SHE TURNS HER HEAD OR MOVES HER EYES. NO SPINNING STATES SHE HAS HAD VERTIGO IN THE PAST MULTPILE TIMES BUT THIS FEELS DIFFERENT. REPORTS SHE DOES NOT FEEL BAD OR HAVE OTHER SYMPTOMS OTHER THAN RELATED TO THIS DIZZINESS. MIKHAIL DARDEN APPAREL PATTERNMAKER-Mariah [address] [place], [address], [facility], LSundar. 04/14/2023 10:45:49 OBGyn Episode No OBEpisode recorded.
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
[2025-06-09 13:18] VITALS: O2SAT 94
== END 2025-06-09 13:35 | disposition home or self-care (01) ==
PROVIDERS: Emergency Provider Emergency Medicine; PCP Family Medicine
DX: S09.90XD Unspecified injury of head, subsequent encounter (principal); F07.81 Postconcussional syndrome; V03.90XD Pedestrian on foot injured in collision with car, pick-up truck or van, unspecified whether traffic or nontraffic accident, subsequent encounter; R42 Dizziness and giddiness
CPT/HCPCS: 70450; 99284

== ENCOUNTER 2025-06-14 11:07 | Emergency (ER) | payer MEDICARE, SELFPAY ==
[2025-06-14 11:14] VITALS: BP 144/65; PULSE 75; RESP 17; TEMP 36.4; O2SAT 98; BMI 26.6
--- OUTSIDE RECORDS SUMMARY | 2025-06-14 11:14 | XMS_ITS | Clinical Summary ---
Author Organization 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
--- OUTSIDE RECORDS SUMMARY | 2025-06-14 11:14 | XMS_ITS | Data Portability ---
Author Organization HAROON Nain [facility] Jonnathan To [facility] Address [address] [address] Assessment Encounter Date Assessment Date Assessment LastModified [...] recorded. Lab urinalysis , complete [address] [facility] ([facility]), [address] [place], [address], 3 11:47:01 culture, urine 2022 023 [facility], [address] [facility] [address], [facility] [address] [place], [address], 3 02:49:14 Referral None recorded. Procedures None recorded. Surgeries None recorded. Imaging None recorded. Medication Orders Macrobid 100 mg capsule 2022 023 [facility] #[id number], [address] [facility] [address], [place], [address], 3 12:01:22 Pyridium 200 mg tablet 2022 023 [id number], [address], [place], [address], 3 12:01:20 nystatin 100,000 unit/gram topical cream 2022 023 [id number], [address], [place], [address], 12:01:21 Patient TargetsNo targets recorded. Patient InstructionsNo instructions recorded. Reason for Referral None Reported. Results Created Date Observation Date Name Description Value Unit Range Abnormal Flag Note LastModifiedBy Organization Detail LastModifiedTime 01/12/2001/11/2023 urina lysis , compl ete color yellow Not Available [facility] ([facility]) [address] [place], [address], 01/11/2023 11:40:39 01/12/2001/11/2023 urina lysis , compl ete clarity cloudy clear Not Available [facility] ([facility]) [address] [place], [address], 01/11/2023 11:40:39 01/12/20 23 01/11/2023 urina lysis , compl ete glucose negati ve negati ve Not Available [facility] ([facility]) [address] [place], [address], 01/11/2023 11:40:39 01/12/20 23 01/11/2023 urina lysis , compl ete bilirubin 1+ negati ve Not Available [facility] ([facility]) [address] [place], [address], 01/11/2023 11:40:39 01/12/20 23 01/11/2023 urina lysis , compl ete ketones trace negati ve Not Available [facility] ([facility]) [address] [place], [address], 01/11/2023 11:40:39 01/12/20 23 01/11/2023 urina lysis , compl ete specific gravity 1.030 1.005- 1.025 Not Available [facility] ([facility]) [address] [place], [address], 01/11/2023 11:40:39 01/12/20 23 01/11/2023 urina lysis , compl ete pH 5.5 5.0-7. 0 Not Available [facility] ([facility]) [address] [place], [address], 01/11/2023 11:40:39 01/12/20 23 01/11/2023 urina lysis , compl ete protein positi ve Not Available [facility] ([facility]) [address] [place], [address], 01/11/2023 11:40:39 01/12/20 23 01/11/2023 urina lysis , compl ete uro 1.0 Not Available [facility] ([facility]) [address] [place], [address], 01/11/2023 11:40:39 01/12/20 23 01/11/2023 urina lysis , compl ete nitrate negati ve negati ve Not Available [facility] ([facility]) [address] [place], [address], 01/11/2023 11:40:39 01/12/20 23 01/11/2023 urina lysis , compl ete blood 3+ negati ve Not Available [facility] ([facility]) [address] [place], [address], 01/11/2023 11:40:39 01/12/20 23 01/11/2023 urina lysis , compl ete leukocytes 2+ negati ve Not Available [facility] ([facility]) [address] [place], [address], 01/11/2023 11:40:39 01/12/20 23 01/11/2023 urina lysis , compl ete WBC >100 packed 0 Not Available [facility] ([facility]) [address] [place], [address], 01/11/2023 11:40:39 01/12/20 23 01/11/2023 urina lysis , compl ete RBC >100 packed 0 Not Available [facility] ([facility]) [address] [place], [address], 01/11/2023 11:40:39 01/12/20 23 01/11/2023 urina lysis , compl ete epi cells - 0 Not Available [facility] ([facility]) [address] [place], [address], 01/11/2023 11:40:39 01/12/20 23 01/11/2023 urina lysis , compl ete bacteria - Not Available [facility] ([facility]) [address] [place], [address], 01/11/2023 11:40:39 01/12/20 23 01/11/2023 urina lysis , compl ete other - Not Available [facility] ([facility]) [address] [place], [address], 01/11/2023 11:40:39 01/13/20 23 01/15/2023 CULTU RE, URINE , ROUTI NE culture, urine, routine SEE NOTE abnormal CULTU RE, URINE , ROUTI NE Micro Numbe r: [id number] Test Statu s: Final Speci men [...] lexin and lorac arbef . Not Available [facility] [address] [place], [address], 01/15/2023 07:22:32 Result Notes None recorded. Problems Name Problem SNOMED Code Status Onset Date Resolution Date Notes Provider Name and Address Organization Details Recorded Time Cholecys tectomy planned [id number] Completed 201603/06/2017 Cholecys tectomy - Status is Inactive ; 03/06/20 17 8:26AM by Shaylee Pérez CMT, Annotati on/Adden dum; Promoted ; acuity set as *; Not Available [facility] 3 03:16:47 Problem Notes None recorded. Medical Equipment None Reported. Allergies Allergen ID Allergen Name Allergen Category Reaction Reaction Severity Criticality Documentation Date Start Date Code Code System Note Provider Name and Address Organization Details Recorded Time 92223 penicilli n V potassium medicatio n Not available Not available Not available 02/11/202352451 5 RxNorm Comme nt: Recor ded 07/01 1:14P M by Garrett Rivas, Offic e Visit ; Neena sosa; Rodger polanco ce: *; Reaso n: Drug aller gy; ; Not Available [facility] 3 02:23:29 Medications Name Sig Start Date [...] Updated DateTime 3 168.91 cm 29.6 kg/m2 91074.1 8 g 97 % 86 /min 20 /min 98 [degF] 132/86 mm[Hg] [facility] 3 11:46:32 Date Recorded Systolic And Diastolic Provider Name and Address Organization Details Last Updated DateTime 04/14/2023 190/100 mm[Hg] AISHA PRIETO [address] [place] [address], [address], [facility] 04/14/2023 10:40:39 Date Recorded Body height Body mass index (BMI) Body weight Oxygen saturation Heart rate Respiratory rate Body temperature Provider Name and Address Organization Details Last Updated DateTime 3 168.91 cm 29.1 kg/m2 79043.4 g 96 % 62 /min 20 /min 97.5 [degF] [facility] 3 10:14:29 Social History None recorded. [...] ICD10 Code Diagnosis IMO Codes Diagnosis Note [id number] [facility] ([facility]) [address] [place] [address] 01/11/2023 11:20:21 01/11/2023 12:08:46 Dysuria 50287482 R30.0 Acute cystitis 10764748 N30.01 Pruritus of vulva 380147 00 L29.2 [id number] [facility] ([facility]) [address] [place] [address] 04/14/2023 10:01:43 04/14/2023 12:55:44 Dizziness 272036531 R42 Due to severity of dizziness, visual changes, elevated blood pressure, and nausea/vom iting, patient was referred to ED for further evaluation . Patient agreeable to go to ED. Patient did have a family member with her who drove her to ED via private vehicle. Report was called to [facility] ED from SHANE Campa to SHANE Artis at [facility] ED. Health Concerns Section Related Observation LastModified by Organization Detai ls LastModified Time None Recorded Concern Status LastModified by Organization Details LastModified Time None Recorded Advance Directives Directive None Recorded Payers Insurance Date Sequence Insurance Name Policy Number Policy Almodovar Covered Member ID Almodovar Member ID Guarantor Name 04/24/2023 1 [place]/ [place]ANTAGE - PPO) [id number] [place] [id number] [place] 01/11/[address] [facility] (MEDICARE SUPPLEMENT) [place] [id number] [place] Notes Date Note Type Note [...] noted in the HPI [facility]OE[facility]US [address] [place], [address], [facility], Eric. 01/11/2023 12:05:28 3 text/html DizzinessReported by [...] THAN RELATED TO THIS DIZZINESS. MIKHAIL DARDEN [employer]IE [employer]ODUCER-Mariah [address] [place], [address], [facility], LSundar. 04/14/2023 10:45:49 OBGyn Episode No OBEpisode recorded.
--- OUTSIDE RECORDS SUMMARY | 2025-06-14 11:14 | XMS_ITS | Clinical Summary ---
Author Organization [facility] Address [address] [place]: Epic Prelude ADT [place]ER[place] [address] Care Team Providers Care Grocery Clerk Stocking Name Role Phone Mike Singer MD Primary [...] on file Legal Sex Female 10:27 AM GRADUATE NURSE Gender Identity Not on file Sexual Orientation Not on file Last Filed Vital Signs Vital Sign Reading Time Taken Comments Blood Pressure 134/70 06/01/2023 10:16 AM GRADUATE NURSE Pulse 80 06/01/2023 10:16 AM GRADUATE NURSE Temperature - - Respiratory Rate - - Oxygen Saturation - - Inhaled Oxygen Concentration - - Weight 83.2 kg (183 lb 6.4 oz) 06/01/2023 10:16 AM GRADUATE NURSE Height - - Body Mass Index - - Plan of Treatment Health Maintenance Due Date Last Done Comments DTAP/TDAP/TD VACCINES (1 - Tdap) 1960 PNEUMOCOCCAL VACCINE 50+ YEARS (1 of 1 - PCV) 06/12/19 ZOSTER VACCINE (1 of 2) 1991 OSTEOPOROSIS SCREENING 2006 RSV VACCINE (60+ or ) (1 - 1-dose 75+ series) 2016 INFLUENZA VACCINE (#1) 2025 Insurance BCBS MEDICARE HMO Care Teams Grocery Clerk Stocking Relationship Specialty Start Date End Date Mike Singer MD [address] [id number] PCP - General Family Practice 07/28/23
--- NOTE | 2025-06-14 11:15 | XRR_ITS ---
PROCEDURE INFORMATION: Exam: XR Abdomen Exam date and time: 06/14/2025 11:18 AM Age: 85 years old Clinical indication: Constipation; Prior surgery; Surgery date: 6+ months; Surgery type: Cholesysectomy TECHNIQUE: Imaging protocol: Radiologic exam of the abdomen. Views: Frontal supine view of the abdomen. 1 View. COMPARISON: CT chest abdpel w/*[id number] 05/30/2025 2:16 PM FINDINGS: Gastrointestinal tract: Increased stool burden in the rectal vault and descending colon. Intraperitoneal space: Right upper quadrant surgical clips. Bones/joints: Lumbar spondylosis. XR/XR KUB [id number] IMPRESSION: Increased stool burden in the rectal vault and descending colon.
--- NOTE | 2025-06-14 11:25 | W.ED.ABDPA2 ---
HPI - Abdominal Pain General: Chief Complaint: Abdominal Pain Stated Complaint: No BM X5 Time Seen by Provider: 06/14/25 11:14 Source: patient Mode of arrival: ambulatory Limitations: no limitations History of Present Illness: 85-year-old female who states that she has not had a bowel movement in 5 days. States she has been having some rectal pain, some slight abdominal pain. She denies any fevers denies any diarrhea. Denies any worse or improving factors. Related Data Home Medications ?Medication ?Instructions ?Recorded ?Confirmed vit C 250 mg-vit E 90 mg-zinc 40 1 tab PO BID 04/14/23 06/09/25 mg-copper 1 [id number] capsule (PreserVision AREDS-2) Previous Rx's ?Medication ?Instructions ?Recorded promethazine-DM 6.25 mg-15 mg/5 mL 10 ml PO Q6H PRN cough #473 mL 03/02/25 oral syrup lisinopril 10 1 tab PO DAILY high blood pressure 04/06/25 mg-hydrochlorothiazide 12.5 mg #90 tabs tablet meclizine 25 mg tablet 25 mg PO TID PRN vertigo #60 tabs 06/09/25 ondansetron 8 mg disintegrating 8 mg PO Q8H PRN nausea and 06/09/25 tablet vomiting #30 tabs Allergies Allergy/AdvReac Type Severity Reaction Status Date / Time Penicillins Allergy throat Verified 06/09/25 11:00 closed up [facility] ED PFSH: Medical History Prediabetes Benign breast lumps Left breast 1 cm size, 7:00 2cm from nipple with screen 12/29/2020, diagnostic mammogram & US 01/25/2021 Hypertension Cardiomegaly on CXR in ER 04/08--saw Dr. [place] cardio at [facility]--had ECHO--normal, no further f/u needed Surgical History History of cholecystectomy Family History Father Heart attack Mother Stroke Brother CAD (coronary artery disease), Onset Age: 61 Social History Smoking and tobacco/nicotine status: former use of tobacco/nicotine Alcohol intake: never Substance/Drug Use: never Household members: spouse Marital status: Number of children: 3 Highest education level completed: High School Graduate Current occupational status: retired Previous occupational history: cook school cafeteria Physical Exam Const: COMMON NORMALS: no acute distress, patient oriented x3 and healthy appearing HENMT: COMMON NORMALS: normocephalic and atraumatic HEAD & SCALP: normocephalic and atraumatic Neck/C-Spine: COMMON NORMALS: full ROM and supple Chest: COMMONS NORMALS: normal inspection of the chest Resp: COMMON NORMALS: normal respiratory effort Cardio: COMMON NORMALS: regular rate, regular rhythm and No murmurs present (Cardio) RATE: regular rate RHYTHM: regular rhythm GI: COMMON NORMALS: Normal to inspection, nondistended, normoactive bowel sounds present, Soft to palpation, non-tender and no masses PALPATION: Yes Soft to palpation Extremity: COMMON NORMALS: normal to inspection and full ROM Neuro: COMMON NORMALS: patient oriented x3, moves all extremities and no focal motor deficits Psych: COMMON NORMALS: mental status grossly normal, Normal thought process present and cooperative THOUGHT PROCESS: Normal thought process present Skin: COMMON NORMALS: no rashes or lesions noted and no wounds GENERAL SKIN EXAM: no rashes or lesions noted Course Vital Signs: Vital signs: Vital Signs Temperature 97.5 F L 06/14/25 11:14 Pulse Rate 75 06/14/25 11:14 Respiratory Rate 17 06/14/25 11:14 Blood Pressure 144/65 06/14/25 11:14 Pulse Oximetry 98 06/14/25 11:14 Oxygen Delivery Me thod Room Air 06/14/25 11:14 MDM - Abdominal Pain Medical Decision Making Patient presents here with abdominal pain differential includes constipation, small bowel obstruction, appendicitis. Patient history is consistent with constipation her x-ray does show constipation as well. Did give her enema lactulose she had a large bowel movement here and feels much improved abdominal exam at discharge is benign she has no signs of any other intra-abdominal process she is follow-up her PCP and return if worsening. Medical Records I reviewed the patient's medical records. Lab Data Labs/Radiology: Radiology Impressions KUB X-Ray 06/14/25 11:15 IMPRESSION: Increased stool burden in the rectal vault and descending colon. All radiology interpretation(s) finalized by discharge Discharge Plan Discharge Patient Disposition: Home Clinical Impression: Constipation Condition: Stable Prescriptions: No Action promethazine-DM 6.25-15 mg/5 mL syrup 10 ml PO Q6H PRN (Reason: cough) Qty: 473 0RF meclizine 25 mg tablet 25 mg PO TID PRN (Reason: vertigo) Qty: 60 0RF ondansetron 8 mg tablet,disintegrating 8 mg PO Q8H PRN (Reason: nausea and vomiting) Qty: 30 1RF lisinopril-hydrochlorothiazide 10-12.5 mg tablet 1 tab PO DAILY Qty: 90 1RF PreserVision AREDS-2 250-90-40-1 mg Capsule 1 tab PO BID Discharge Orders: Discharge ED (Routine); Ordered 06/14/25 Ordered By: Trevor Angeles Referrals: Lali Chiu MD [Primary Care Provider, Family Practice] Discharge Diet: Advance as tolerated Discharge Activity: Resume usual activity Patient Instructions: Constipation (ED) Print Language: Ukrainian Coding Level of Care Code ED Vacation Planner for Chiki Aquino
[2025-06-14] MEDS: Fleet Enema 133 mL Enema PR (11:33)
[2025-06-14] MEDS: lactulose oral liq 20 gm/30 mL UDC 30 GM PO (11:43)
--- NOTE | 2025-06-14 12:08 | PC.NURSE ---
PT had large BM and reports relief
[2025-06-14 12:14] VITALS: BP 144/68; PULSE 77; O2SAT 98
== END 2025-06-14 12:14 | disposition home or self-care (01) ==
PROVIDERS: Emergency Provider Emergency Medicine; PCP Family Medicine
DX: K59.00 Constipation, unspecified (principal); Z87.891 Personal history of nicotine dependence; I10 Essential (primary) hypertension
CPT/HCPCS: 74018; 99283; J9999